=== PATIENT | male | born 1995 | race African-American/Black ===

== ENCOUNTER 2024-03-05 11:46 | Emergency (ER) | payer MEDICAID, OTHER ==
[~2024-03-05] VITALS: Ht 175.3 cm; Wt 100.0 kg
[~2024-03-05 11:46] MED LIST: ALBUTEROL
[2024-03-05 12:06] VITALS: TEMP 98.4; O2SAT 100
[2024-03-05] MEDS: FLUORESCEIN SODIUM 1MG/STRIP EACHEYE ONE (12:45)
[2024-03-05] MEDS ORDERED: AMOX1TAB16 MT (13:22)
[2024-03-05 14:02] VITALS: BP 126/85; PULSE 85; RESP 16; O2SAT 99
== END 2024-03-05 14:03 | disposition home or self-care (01) ==
LOC: ER 11:46
DX: L03.213 Periorbital cellulitis (principal); J45.909 Unspecified asthma, uncomplicated
CPT/HCPCS: 99283

== ENCOUNTER 2025-05-12 23:35 | Emergency (ER) | payer MEDICAID ==
[~2025-05-12] VITALS: Ht 175.3 cm; Wt 120.3 kg
[~2025-05-12 23:35] MED LIST changes: +AMOX1TAB16 MT
[2025-05-12 23:40] VITALS: O2SAT 100
[2025-05-13 00:33] LABS: BASOPHILS % 0.6 % (0.0-2.0); EOSINOPHILS % 2.1 % (0.0-5.0); HEMATOCRIT. 42.9 % (42.0-52.0); HEMOGLOBIN. 14.3 g/dL (14.0-18.0); LYMPHOCYTES % 42.5 % (20.0-50.0); MEAN PLATELET VOLUME 8.0 fl (7.4-10.4); MONOCYTES % 8.4 % (2.0-8.0); NEUTROPHILS % 46.4 % (40.0-76.0); PLATELET 219 x1000/uL (130-400); RED BLOOD CELL COUNT 4.78 mill/uL (4.7-6.1); RED CELL DISTRIBUTION WIDTH 14.2 % (11.6-14.6)
[2025-05-13 00:45] LABS: CREATININE 0.8 mg/dL (0.6-1.3); UREA NITROGEN BLOOD 12 mg/dL (9-23)
[2025-05-13 00:46] LABS: TROPONIN I HIGH SENSITIVITY < 4 ng/L (3.0-53)
[2025-05-13 00:47] LABS: ASPARTATE AMINOTRANSFERASE 28 IU/L (<34)
[2025-05-13 00:48] LABS: BILIRUBIN DIRECT < 0.1 mg/dL (<=3.0); BILIRUBIN TOTAL 0.3 mg/dL (0.1-1.0); PROTEIN TOTAL 7.1 g/dL (6.0-8.3)
[2025-05-13] MEDS: FAMOTIDINE 20MG TABLET PO ONE (02:17)
[2025-05-13] MEDS: ACETAMINOPHEN 500MG TABLET PO ONE (02:17)
[2025-05-13] MEDS ORDERED: FAMO-135 MT (03:04)
[2025-05-13 03:56] LABS: TROPONIN I HIGH SENSITIVITY < 4 ng/L (3.0-53)
[2025-05-13 04:25] VITALS: BP 118/76; PULSE 89; RESP 18; TEMP 36.6; O2SAT 98
== END 2025-05-13 04:27 | disposition home or self-care (01) ==
LOC: ER 23:35
DX: R07.2 Precordial pain (principal); J45.909 Unspecified asthma, uncomplicated; Z79.899 Other long term (current) drug therapy
CPT/HCPCS: 36415; 71045; 80048; 80076; 84484; 85025; 93005; 99285

== ENCOUNTER 2025-06-21 10:34 | Emergency (ER) | payer MEDICAID ==
[~2025-06-21] VITALS: Ht 175.3 cm; Wt 114.0 kg
[~2025-06-21 10:34] MED LIST changes: +FAMO-135 MT
[2025-06-21 10:44] VITALS: O2SAT 100
[2025-06-21 10:56] VITALS: TEMP 36.9; O2SAT 99
[2025-06-21 12:00] VITALS: BP 144/86; PULSE 93; RESP 16
[2025-06-21] MEDS: IBUPROFEN 800MG TABLET PO ONE (12:00)
[2025-06-21] MEDS ORDERED: IBUP-2030 MT (12:24)
== END 2025-06-21 12:30 | disposition home or self-care (01) ==
LOC: ER 11:56
DX: S09.90XA Unspecified injury of head, initial encounter (principal); R07.89 Other chest pain; J45.909 Unspecified asthma, uncomplicated; X58.XXXA Exposure to other specified factors, initial encounter; Y93.89 Activity, other specified; Y92.89 Other specified places as the place of occurrence of the external cause; Y99.8 Other external cause status
CPT/HCPCS: 71045; 71250; 99284

== ENCOUNTER 2025-07-03 03:17 | Emergency (ER) | payer MEDICAID ==
[~2025-07-03] VITALS: Ht 175.3 cm; Wt 118.0 kg
[~2025-07-03 03:17] MED LIST changes: +IBUP-2030 MT
[2025-07-03 03:22] VITALS: O2SAT 100
[2025-07-03] MEDS: VISCOUS LIDOCAINE 2% 15 ML UDC MM ONE (04:37)
[2025-07-03] MEDS: MAGNESIUM/ALUMINUM HYDROXIDE/SIMETHICONE 30ML UDC PO ONE (04:37)
[2025-07-03] MEDS: FAMOTIDINE 20MG TABLET PO ONE (04:37)
[2025-07-03] MEDS ORDERED: IBUP-1455 MT (05:37)
[2025-07-03 06:05] VITALS: BP 106/62; PULSE 89; RESP 18; TEMP 36.4; O2SAT 98
== END 2025-07-03 06:05 | disposition home or self-care (01) ==
LOC: ER 03:17
DX: R07.89 Other chest pain (principal); F12.90 Cannabis use, unspecified, uncomplicated; J45.909 Unspecified asthma, uncomplicated
CPT/HCPCS: 71045; 93005; 99284